=== PATIENT | female | born 1955 | race Caucasian/White ===

== ENCOUNTER → 2016-10-31 | Outpatient (CLI) | payer OTHER ==
--- NOTE | 2016-10-31 09:52 | DX ---
Fluoroscopy of the Left Hip Clinical History: 61-year-old female with left hip pain. Findings: Dr. Yaniv Wahl used 0.1 minutes of fluoroscopy time, and a spot matrix intraoperative i mage was acquired at 9:38 a.m. identifying a needle over the left femoral intertrochanteric region. Impression: Intraoperative fluoroscopy of the left hip.
== END ==
LOC: BMCIMAGING 08:34
PROVIDERS: ATTEND Orthopaedic Surgery
DX: M25.552 Pain in left hip (principal)

== ENCOUNTER → 2017-04-17 | Outpatient (CLI) | payer OTHER | LOC: BMCIMAGING 08:46 | PROVIDERS: ATTEND Orthopaedic Surgery | PROC: BQ111ZZ Fluoroscopy of Left Hip using Low Osmolar Contrast (ICD-10-PCS; principal; 2017-04-17) | DX: M16.12 Unilateral primary osteoarthritis, left hip (principal) ==

== ENCOUNTER → 2017-08-27 | Outpatient (CLI) | payer OTHER | LOC: BMCIMAGING 08:49 | PROVIDERS: ATTEND Orthopaedic Surgery | DX: M25.552 Pain in left hip (principal) ==